=== PATIENT | female | born 1980 | race Caucasian/White ===

== ENCOUNTER 2022-09-21 09:54 | Outpatient (REF) | payer MEDICARE, MEDICAID, SELFPAY ==
[2022-09-21 11:39] LABS: MANUAL DIFF FLAG NO
[2022-09-21 11:47] LABS: Appearance Urine Clear; Color Urine Yellow; Glucose Urine UA Negative (Negative); Leukocyte Esterase Urine Negative (Negative); Nitrite Urine Negative (Negative); UMIC TRIGGER UA YES; Urine Blood Small (1+) (Negative); Urine Ketones Trace mg/dL (Negative); Urine Protein Negative (Neg-Trace)
[2022-09-21 11:52] LABS: Bacteria Urine 1+ (None Seen); Hyaline Casts Urine 0-2 /LPF (0-2); WBC Urine 0-5 /HPF (0-5)
[2022-09-21 12:00] LABS: Basophils Percent Auto 0.5 % (0-2); Eosinophils Absolute Auto 0.2 X10*3/uL (0.0-0.4); Eosinophils Percent Auto 2.2 % (0-4); Hematocrit 44.2 % (37.0-47.0); Hemoglobin 14.4 g/dl (12.0-16.0); Imm Gran Abs Auto 0.02 X10*3/uL (0.00-0.03); Imm Gran Pct Auto 0.2 % (0.0-0.4); Lymphocytes Absolute Auto 2.9 X10*3/uL (1.2-4.9); Lymphocytes Percent Auto 33.1 % (20-40); Mean Corpuscular HGB Conc 32.6 g/dl (31.0-35.0); Mean Corpuscular Hemoglobin 27.4 pg (27.0-33.0); Mean Corpuscular Volume 84.2 fL (80.0-98.0); Mean Platelet Volume 9.5 fL (9.4-12.3); Monocytes Absolute Auto 0.6 X10*3/uL (0.1-1.2); Monocytes Percent Auto 6.8 % (2-11); Neutrophils Percent Auto 57.2 % (45-73); Platelet Count 388 X10*3/uL (160-400); Red Blood Count 5.25 X10*6/uL (4.20-5.50); Red Cell Distribution Width 13.4 % (11.0-16.0); White Blood Count 8.7 X10*3/uL (4.8-10.8)
[2022-09-21 15:22] LABS: Alanine Aminotransferase 19 U/L (0-31); Albumin Level 4.4 g/dL (3.5-5.0); Alkaline Phosphatase 53 U/L (39-117); Anion Gap 14 (12-20); Aspartate Amino Transferase 15 U/L (5-31); Bilirubin Total 0.6 mg/dL (0.0-1.0); Blood Urea Nitrogen 12 mg/dL (9-16); Calcium 8.8 mg/dL (8.4-10.2); Carbon Dioxide 25 mmol/L (22-29); Chloride 104 mmol/L (96-108); Cholesterol 267 mg/dL; Estimated Glomerular Filt Rate > 60; Glucose Fasting 83 mg/dL (60-99); HDL Cholesterol 58 mg/dL; LDL Cholesterol Calculated 184 mg/dl; Potassium 4.6 mmol/L (3.3-5.1); Sodium 138 mmol/L (135-145); Total Protein 6.8 g/dL (6.5-8.0); Triglycerides 127 mg/dL
== END 2022-09-21 09:55 | disposition home or self-care (01) ==
LOC: HO.HMGCLDS 09:54
PROVIDERS: PCP Internal Medicine; Visit Provider Internal Medicine
DX: Z00.00 Encounter for general adult medical examination without abnormal findings (principal); E78.5 Hyperlipidemia, unspecified
CPT/HCPCS: 36415; 80053; 80061; 81001; 85025

== ENCOUNTER 2023-03-09 12:29 | Outpatient (AMB) | payer MEDICARE, MEDICAID, SELFPAY ==
--- NOTE | 2023-03-09 12:33 | MHC.PC.OV ---
Vital Signs 03/09/23 12:35 Height 5 ft 5.5 in Weight 160 lb BMI 26.2 BP 98/66 Blood Pressure Location Lt brachial Position Sitting Pulse 75 Pulse Source Pulse Oximeter Pulse Oximetry (%) 98 Oxygen Delivery Method Room Air Intake Visit Reasons: 3 Month follow up Intake Note: Pt is here today for 3 months follow up visit. Allergies No Known Allergies Allergy (Verified 03/09/23 12:36) Medication List - Last Reconciled 03/09/23 by Micheline Gomez MD baclofen 10 mg PO BEDTIME levonorgestrel (Mirena) intrauterine omeprazole 40 mg (2 x 20 mg) PO DAILY pravastatin 40 mg PO DAILY Tobacco use date assessed: 03/09/23 Dental Screening Dental Screen Date: 03/09/23 Did you have a dental visit in the last 12 months?: Yes Did you have a dental problem in the last 6 months where you did not have access to dental care?: No Was dental information given to patient?: Patient has dentist HPI 3 Month follow up HPI Details Pt presents for f/u of hyperlipid. Pt has been taking Pravastatin. Pt has been taking Baclofen prn for TMJ and feels slightly better. Patient follows up with a counselor for chronic anxiety and depression. She used to take different medications for the depression but developed side effects to multiple medications. Patient is reconsidering seeing a psychiatrist and trying medication. [facility] Medical History Agoraphobia Annual physical exam GERD (gastroesophageal reflux disease) Hyperlipidemia Surgical History Hx of appendectomy Family History Father Hypertension Diabetes Substance use disorder Mother Mental health disorder Social History Housing: Unknown / Unable to assess Alcohol intake: never Patient Tobacco Use Status: Never used Tobacco Current occupational status: unemployed Cognitive needs: No Hearing needs: No Vision needs: Yes Review of Systems Const All systems reviewed & are unremarkable except as noted in HPI and below Reports no additional complaints Eyes Reports no additional complaints ENT Reports no additional complaints Resp Reports no additional complaints GI Reports no additional complaints Reports no additional complaints Neuro Reports no additional complaints Physical exam (Primary Care) Vital Signs: Last Vital Signs Pulse 75 03/09/23 12:35 BP 98/66 03/09/23 12:35 Pulse Ox 98 03/09/23 12:35 Oxygen Delivery Method Room Air 03/09/23 12:35 BMI result Body Mass Index 26.2 Tobacco/Smoking Status: Tobacco use Status Tobacco use date assessed 03/09/23 03/09/23 12:39 Patient Tobacco Use Status Never used Tobacco 03/09/23 12:34 Const General: no acute distress HENMT Ears: hearing grossly normal bilaterally Mouth: Normal oral and palatal mucosa present Throat: Yes posterior oropharynx normal Eyes General: appearance normal, both eyes and all related structures Neck Neck: Yes supple Resp Effort & Inspection: normal respiratory effort Auscultation: clear to auscultation bilaterally Cardio Rhythm: regular rhythm Heart sounds: S1 normal heart sound present and S2 normal heart sound present GI Inspection: Yes normal to inspection Palpation (GI): Soft to palpation Auscultation: normal bowel sounds Assessment and Plan Assessment & Plan (1) Hyperlipidemia: Code(s): E78.5 - Hyperlipidemia, unspecified Plan: Continue pravastatin patient will return for fasting blood work and will follow-up in 6 months with blood work before (2) Annual physical exam: Code(s): Z00.00 - Encounter for general adult medical examination without abnormal findings (3) TMJ (temporomandibular joint disorder): Code(s): M26.609 - Unspecified temporomandibular joint disorder, unspecified side Plan: Continue baclofen p.r.n. (4) Anxiety and depression: Code(s): F41.9 - Anxiety disorder, unspecified; F32.A - Depression, unspecified Plan: Continue counseling and psychiatric care Orders: Orders Comprehensive [place]. Panel Fast 6 Months E78.5 - Hyperlipidemia, unspecified, R09.82 - Postnasal drip, Z00.00 - Encounter for general adult medical examination without abnormal findings Lipid Panel 6 Months E78.5 - Hyperlipidemia, unspecified, R09.82 - Postnasal drip, Z00.00 - Encounter for general adult medical examination without abnormal findings Complete Blood Count Auto Diff 6 Months E78.5 - Hyperlipidemia, unspecified, R09.82 - Postnasal drip, Z00.00 - Encounter for general adult medical examination without abnormal findings TSH reflex Free T4 6 Months E78.5 - Hyperlipidemia, unspecified, R09.82 - Postnasal drip, Z00.00 - Encounter for general adult medical examination without abnormal findings Coding Level of Care Code Est Pt Level 4 (63282) Diagnoses Hyperlipidemia E78.5 Annual physical exam Z00.00 TMJ (temporomandibular joint disorder) M26.609 Anxiety and depression F41.9; F32.A
[2023-03-09 12:35] VITALS: BP 98/66; PULSE 75; O2SAT 98; BMI 26.2
== END 2023-03-09 13:24 | disposition home or self-care (01) ==
PROVIDERS: PCP Internal Medicine; Visit Provider Internal Medicine
DX: E78.5 Hyperlipidemia, unspecified (principal); Z00.00 Encounter for general adult medical examination without abnormal findings; M26.609 Unspecified temporomandibular joint disorder, unspecified side; F41.9 Anxiety disorder, unspecified; F32.A Depression, unspecified
CPT/HCPCS: 99214

== ENCOUNTER 2023-03-20 07:11 | Outpatient (REF) | payer MEDICARE, MEDICAID, SELFPAY ==
[2023-03-20 12:40] LABS: Alanine Aminotransferase 28 U/L (0-31); Albumin Level 4.4 g/dL (3.5-5.0); Alkaline Phosphatase 63 U/L (39-117); Anion Gap 12 (12-20); Aspartate Amino Transferase 19 U/L (5-31); Bilirubin Total 0.3 mg/dL (0.0-1.0); Blood Urea Nitrogen 14 mg/dL (9-16); Calcium 9.4 mg/dL (8.4-10.2); Carbon Dioxide 25 mmol/L (22-29); Chloride 106 mmol/L (96-108); Cholesterol 204 mg/dL (<200); Estimated Glomerular Filt Rate > 60; Glucose Fasting 87 mg/dL (60-99); HDL Cholesterol 76 mg/dL (>40); LDL Cholesterol Calculated 114 mg/dL (<100); Sodium 139 mmol/L (135-145); Triglycerides 71 mg/dL (<150)
== END 2023-03-20 07:12 | disposition home or self-care (01) ==
LOC: HO.HMGCLDS 07:11
PROVIDERS: PCP Internal Medicine; Visit Provider Internal Medicine
DX: E78.5 Hyperlipidemia, unspecified (principal)
CPT/HCPCS: 36415; 80053; 80061

== ENCOUNTER 2024-01-14 13:21 | Outpatient (AMB) | payer MEDICARE, MEDICAID, SELFPAY ==
--- NOTE | 2024-01-14 13:35 | AM.OFFVISMDC ---
Intake Vital Signs 01/14/24 13:36 Height 5 ft 5.5 in Weight 160 lb BMI 26.2 BP 102/68 Blood Pressure Location Lt brachial Position Sitting Pulse 74 Pulse Source Pulse Oximeter Pulse Oximetry (%) 96 Oxygen Delivery Method Room Air Intake Visit Reasons: AWV Allergies No Known Allergies Allergy (Verified 01/14/24 13:36) Medication List - Last Reconciled 01/14/24 by Micheline Gomez MD baclofen 10 mg PO BEDTIME levonorgestrel (Mirena) intrauterine omeprazole 40 mg PO DAILY pravastatin 40 mg PO DAILY HPI AWV HPI Details Initiated the conversation about Advanced Directives. Advanced Directives help? patients prepare for current and future decisions about their medical treatment? and place of care. Discussed with patient that it is a process where a patients? current condition and prognosis are reviewed, their wishes for information? regarding their illness are elicited, and likely medical dilemmas are presented? and options discussed. The form can be amended as needed, reviewed yearly and? make changes as needed IPPE/AWV ? year old presents? for her ? Annual? Wellness Visit, initial visit.? Medical / Social History Reviewed? Past Medical History ?Yes? . ? [place]? of Care / Care Team list updated ?Yes . ? Surgical/Hospitalization? History ?Yes . ? Current Medications? (including OTC and supplements) ?Yes . ? Family History ?Yes? . ? Tobacco? Control form ?Yes . ? AUDIT-C (Alcohol use) form? ?Yes . ? Illicit drug use in Social? History ?Yes . ? Current diagnosis of? depression? ?No ? Appropriate PHQ2/PHQ9? completed ?Yes . ? Data entered by ?Medical? Casting Room Operator and reviewed by provider ? Fall Risk ? Fall? History? Have you had any falls with? injury in the past year? ?No . ? Have you had two or more? falls in the past year? ?No . ? Fall Risk Assessment: ?No? falls in the past year . ? HRA filled out by? the patient, reviewed by Provider and scanned. ? IPPE/AWV ? Balance? [place]? ?Yes . ? Tandem? walk ?Yes . ? Walk and? Turn ?Yes . ? Rise from? sit to stand ?Yes . ?Vision? Corrective? lens ?Yes ? Vision? screen ? Up-to-date, has an appointment [] for vision? screening and glaucoma screening ?Hearing? Whisper? test ?pass .? Initiated the conversation about Advanced Directives. Advanced Directives help? patients prepare for current and future decisions about their medical treatment? and place of care. Discussed with patient that it is a process where a patients? current condition and prognosis are reviewed, their wishes for information? regarding their illness are elicited, and likely medical dilemmas are presented? and options discussed. The form can be amended as needed, reviewed yearly and? make changes as needed Written? Plan?Completed. See Patient? Documents. [facility] Medical History Agoraphobia Annual physical exam GERD (gastroesophageal reflux disease) Hyperlipidemia Surgical History Hx of appendectomy Family History Father Hypertension Diabetes Substance use disorder Mother Mental health disorder Social History Housing: Unknown / Unable to assess Alcohol intake: never Patient Tobacco Use Status: Never used Tobacco Current occupational status: unemployed Cognitive needs: No Hearing needs: No Vision needs: Yes Questionnaire Medicare Wellness Checkup What gender do you identify with?: female During the past 4 weeks, how much have you been bothered by emotional problems such as feeling anxious, depressed, irritable, sad or downhearted, and blue?: extremely During the past 4 weeks, has your physical & emotional health limited your social activities with family, friends, neighbors, or groups?: extremely During the past 4 weeks, how much bodily pain have you generally had?: moderate pain During the past 4 weeks, was someone available to help you if you needed & wanted help?: yes, as much as I wanted During the past 4 weeks, what was the hardest physical activity you could do for at least 2 minutes?: light Can you get to places out of walking distance without help? (For eg., can you travel alone on buses, taxis or drive your car?): Yes Can you go shopping for groceries or clothes without someone's help?: Yes Can you prepare your own meals?: Yes Can you do your housework without help?: Yes Because of any health problems, do you need the help of another person with your personal care needs such as eating, bathing, dressing or getting around the house?: No Can you handle your own money without help?: Yes During the past 4 weeks, how would you rate your health in general?: fair During the past 4 weeks how have things been going for you?: pretty bad Are you having difficulties driving your car?: no Do you always fasten your seat belt when you are in a car?: yes, usually During past 4 weeks, have you been bothered by the following: never: Problems using the telephone?, seldom: Falling or dizzy when standing up, often: Sexual problems? and Trouble eating well? and always: Teeth or denture problems? and Tiredness or fatigue? Have you fallen 2 or more times in the past year?: No Are you afraid of falling?: No Are you a smoker?: yes, and I might quit During the past 4 weeks, how many drinks of wine, beer, or other alcoholic beverages did you have?: 2-5 drinks per week Do you exercise for about 20 minutes 3 or more times a week?: no, I usually do not exercise this much Have you been given information to help with the following?: no: Hazards in your house that might hurt you? and no: Keeping track of your medications? How often do you have trouble taking medicines the way you have been told to take them?: I always take medicine as prescribed How confident are you that you can control & manage most of your health problems?: very confident What is your race?: White Mini Mental State Exam (MMSE) Orientation What is the (year) (season) (date) (day) (month)?: year, season, date, day and month Where are we (state) (county) (town or city) (hospital) (floor)?: state, county, town or city, hospital/clinic and floor Registration Name of 3 unrelated objects clearly and slowly, then ask patient to repeat all 3 of them. (1st repeat determines score. Make sure they can repeat all three): object 1, object 2 and object 3 Attention & Calculation (CHOOSE ONE) Spell WORLD backwards (DLROW): 5 letters Recall Ask patient to repeat the 3 items from question #3.: object 1, object 2 and object 3 Language Show patient a wristwatch & ask what it is. Repeat for pencil.: watch and pencil Ask the patient to repeat the phrase 'No ifs, ands, or buts' after you.: correct Ask the patient to 'take a piece of paper with their right hand' 'fold paper in half' 'place paper on floor': take paper in right hand, fold paper in half and place paper on floor Print the sentence 'CLOSE YOUR EYES' on a piece. If patient actually closes eyes then score.: followed written direction Give patient a blank piece of paper & ask to write a sentence. Score if it contains a noun & verb.: sentence contains subject and verb Score Score: 29 Activity of Daily Living Bathing - sponge bath, tub bath or shower: receives no assistance (gets in/out by self, if usual bathing means Dressing - getting clothes from closets & drawers, including inner/outer garments & fasteners.: gets clothes & gets completely dressed without help Toileting - going to the 'toilet room' for urine/bowel elimination & cleaning self/arranging clothes: goes to toilet room, cleans self, arranges clothes without help Transfer: moves in & out of bed and chair without help (may use support object) Continence: controls urination/bowel movements completely by self Feeding: feeds self without help Total Score: 0 Information obtained from: patient Using telephone: independent Traveling: independent Shopping: independent Preparing meals: independent Housework: independent Taking medicine: independent Managing money: independent PHQ-9 Over the last 2 weeks, how often have you been bothered by any of the following problems? 1. Little interest or pleasure in doing things: nearly every day 2. Feeling down, depressed, or hopeless: nearly every day 3. Trouble falling or staying asleep, or sleeping too much: nearly every day 4. Feeling tired or having little energy: nearly every day 5. Poor appetite or overeating: not at all 6. Feeling bad about yourself - or that you are a failure or have let yourself or your family down: nearly every day 7. Trouble concentrating on things, such as reading the newspaper or watching television: nearly every day 8. Moving or speaking so slowly that other people could have noticed. Or the opposite - being so fidgety or restless that you have been moving around a lot more than usual: not at all 9. Thoughts that you would be better off or of hurting yourself in some way: several days Total score: 19 Depression Screening Interpretation: Positive Depression Screening Done: Yes Source: Developed by Drs. Jered Hannah, Melodie Shine, Fahad Willett and colleagues, with an educational corin from [employer] Review of Systems Const All systems reviewed & are unremarkable except as noted in HPI and below Eyes Reports no additional complaints ENT Reports no additional complaints Card Reports no additional complaints Resp Reports no additional complaints GI Reports no additional complaints Reports no additional complaints Physical Exam Vital Signs: Last Vital Signs Pulse 74 01/14/24 13:36 BP 102/68 01/14/24 13:36 Pulse Ox 96 01/14/24 13:36 Oxygen Delivery Method Room Air 01/14/24 13:36 BMI result Body Mass Index 26.2 Const General: no acute distress HEENT Head: Yes normal to inspection Ears: hearing grossly normal bilaterally Neck Neck: Yes normal visual inspection and Yes supple Resp Effort & Inspection: normal respiratory effort Auscultation: clear to auscultation bilaterally Cardio Rhythm: regular rhythm Heart sounds: S1 normal heart sound present and S2 normal heart sound present GI Inspection: Yes normal to inspection Palpation (GI): Soft to palpation Percussion: Yes normal to percussion Auscultation: normal bowel sounds Assessment & Plan Assessment & Plan (1) Hyperlipidemia: Code(s): E78.5 - Hyperlipidemia, unspecified Plan: Continue statin (2) Annual physical exam: Code(s): Z00.00 - Encounter for general adult medical examination without abnormal findings Plan: Well-balanced diet regular physical activity discussed with the patient. She will return for fasting blood work. Patient is up-to-date with the Pap smear and breast exam by applications analyst (3) Anxiety and depression: Comment: Agoraphobia, f/u psychology Code(s): F41.9 - Anxiety disorder, unspecified; F32.A - Depression, unspecified Plan: Follow-up with psychologist Orders: Orders TSH reflex Free T4 Today E78.5 - Hyperlipidemia, unspecified, F32.A - Depression, unspecified, F41.9 - Anxiety disorder, unspecified, Z00.00 - Encounter for general adult medical examination without abnormal findings Lipid Panel Today E78.5 - Hyperlipidemia, unspecified, F32.A - Depression, unspecified, F41.9 - Anxiety disorder, unspecified, Z00.00 - Encounter for general adult medical examination without abnormal findings Comprehensive [place]. Panel Fast Today E78.5 - Hyperlipidemia, unspecified, F32.A - Depression, unspecified, F41.9 - Anxiety disorder, unspecified, Z00.00 - Encounter for general adult medical examination without abnormal findings Complete Blood Count Auto Diff Today E78.5 - Hyperlipidemia, unspecified, F32.A - Depression, unspecified, F41.9 - Anxiety disorder, unspecified, Z00.00 - Encounter for general adult medical examination without abnormal findings Quality Reporting (2019) Depression/Bipolar (159/160/161/177) PHQ-9: Total score: 19 Coding Level of Care Code Medicare Subsequent (G0439) Diagnoses Hyperlipidemia E78.5 Annual physical exam Z00.00 Anxiety and depression F41.9; F32.A CPT Codes Advance Care Planning - Time spent: 1-15 minutes, not on file ([id number]) Advance Care Planning Advance Care Planning discussion: Exists, not on file Forms completed: Health Care Proxy Time spent: 1-15 minutes, not on file
[2024-01-14 13:36] VITALS: BP 102/68; PULSE 74; O2SAT 96; BMI 26.2
== END 2024-01-14 14:22 | disposition home or self-care (01) ==
PROVIDERS: PCP Internal Medicine; Visit Provider Internal Medicine
DX: Z00.00 Encounter for general adult medical examination without abnormal findings (principal); E78.5 Hyperlipidemia, unspecified; F41.9 Anxiety disorder, unspecified; F32.A Depression, unspecified
CPT/HCPCS: 1124F; G0439

== ENCOUNTER 2024-02-15 09:41 | Outpatient (AMB) | payer MEDICARE, MEDICAID, SELFPAY ==
--- NOTE | 2024-02-15 09:52 | A.OFFPC_ITS ---
Vital Signs 02/15/24 10:02 Height 5 ft 5.5 in Weight 160 lb BMI 26.2 BP 102/66 Blood Pressure Location Rt brachial Position Sitting Pulse 72 Pulse Source Pulse Oximeter Pulse Oximetry (%) 99 Oxygen Delivery Method Room Air Intake Visit Reasons: Followup jaw and neck pain Intake Note: Pt is here today for a follow up visit on jaw and neck pain. Allergies No Known Allergies Allergy (Verified 02/15/24 10:09) Medication List - Last Reconciled 02/15/24 by Micheline Gomez MD baclofen 10 mg PO BEDTIME levonorgestrel (Mirena) intrauterine omeprazole 40 mg PO DAILY pravastatin 40 mg PO DAILY Tobacco use date assessed: 02/15/24 Dental Screening Dental Screen Date: 02/15/24 Did you have a dental visit in the last 12 months?: Yes Did you have a dental problem in the last 6 months where you did not have access to dental care?: No Was dental information given to patient?: Patient has dentist HPI Followup jaw and neck pain HPI Details Pt presents for f/u for TMJ and chronic clenching teeth, f/u with dentist and has been getting physical therapy. She has been taking baclofen at bedtime with good relief. Hyperlipidemia is controlled on pravastatin. Patient is established with a therapist for chronic anxiety [facility] Medical History Annual physical exam Hyperlipidemia GERD (gastroesophageal reflux disease) Agoraphobia Surgical History Hx of appendectomy Family History Father Hypertension Diabetes Substance use disorder Mother Mental health disorder Social History Housing: Unknown / Unable to assess Alcohol intake: never Patient Tobacco Use Status: Never used Tobacco service: No Current occupational status: unemployed Cognitive needs: No Hearing needs: No Vision needs: Yes Questionnaire PHQ-9 Over the last 2 weeks, how often have you been bothered by any of the following problems? 1. Little interest or pleasure in doing things: nearly every day 2. Feeling down, depressed, or hopeless: nearly every day 3. Trouble falling or staying asleep, or sleeping too much: nearly every day 4. Feeling tired or having little energy: nearly every day 5. Poor appetite or overeating: nearly every day 6. Feeling bad about yourself - or that you are a failure or have let yourself or your family down: nearly every day 7. Trouble concentrating on things, such as reading the newspaper or watching television: nearly every day 8. Moving or speaking so slowly that other people could have noticed. Or the opposite - being so fidgety or restless that you have been moving around a lot more than usual: not at all 9. Thoughts that you would be better off or of hurting yourself in some way: several days Total score: 22 Source: Developed by Drs. Jered Hannah, Melodie Shine, Fahad Willett and colleagues, with an educational corin from [employer]. Thrive Questionnaire Date Thrive assessed: 02/10/24 I am a: Patient What is your living situation today?: I have a steady place to live Within the past 12 months, did the food you bought not last and you didn't have the money to get more?: I choose not to answer this question Within the past 12 months, did you worry whether your food would run out before you got money to buy more?: Never true Do you have trouble paying for medicines?: No Do you have trouble getting transportation to medical appointments?: No Do you have trouble paying your heating and electricity bill?: No Do you have trouble taking care of your child, family member or friend?: No Do you have trouble with day-to-day activities such as bathing, preparing meals, shopping, managing finances, etc.?: I choose not to answer this question Are you currently unemployed and looking for a job?: No Are you interested in more education?: Yes Please select the resources that you would like help with: Housing/Snf Currently or been in a relationship where the following occur: I choose not to answer THRIVE Score: 0 AUDIT C Alcohol Use Questionnaire (AUDIT-C) 1. How often do you have a drink containing alcohol?: Monthly or less 2. How many drinks containing alcohol do you have on a typical day when you are drinking?: 1 or 2 3. How often do you have six or more drinks on one occasion?: Never Total Score: 1 JJ-7 AMB Questionnaire JJ-7 Feeling nervous, anxious, or on edge: 3 = Nearly every day Not being able to stop or control worryin = Nearly every day Worrying too much about different things: 3 = Nearly every day Trouble relaxin = Nearly every day Being so restless that it is hard to sit still: 0 = Not at all Becoming easily annoyed or irritable: 1 = Several days Feeling afraid as if something awful might happen: 3 = Nearly every day Total JJ-7 score (0-4 normal; 5-9 mild; 10-14 moderate; 15-21 severe): 16 Source: Developed by Drs. Jered Hannah, Melodie Shine, Fahad Willett and colleagues, with an educational corin from [employer]. Review of Systems Const All systems reviewed & are unremarkable except as noted in HPI and below Eyes Reports no additional complaints ENT Reports no additional complaints Card Reports no additional complaints Resp Reports no additional complaints GI Reports no additional complaints Physical exam (Primary Care) Vital Signs: Last Vital Signs Pulse 72 02/15/24 10:02 BP 102/66 02/15/24 10:02 Pulse Ox 99 02/15/24 10:02 Oxygen Delivery Method Room Air 02/15/24 10:02 BMI result Body Mass Index 26.2 Tobacco/Smoking Status: Tobacco use Status Tobacco use date assessed 02/15/24 02/15/24 10:11 Patient Tobacco Use Status Never used Tobacco 02/15/24 10:11 PHQ-9: PHQ-9 Score PHQ-9: Total score 22 02/15/24 10:50 Thrive Assessment: Date of Thrive Assessment Date Thrive assessed 02/10/24 02/15/24 09:52 Currently or been in a relationship where the following occur: I choose not to answer Assessment and Plan Assessment & Plan (1) Anxiety and depression: Comment: Agoraphobia, f/u psychology Code(s): F41.9 - Anxiety disorder, unspecified; F32.A - Depression, unspecified (2) TMJ (temporomandibular joint disorder): Comment: On baclofen p.r.n. and PT Code(s): M26.609 - Unspecified temporomandibular joint disorder, unspecified side Plan: CONTINUE BACLOFEN NEEDED (3) Hyperlipidemia: Code(s): E78.5 - Hyperlipidemia, unspecified Plan: Continue pravastatin Orders: Orders Complete Blood Count Auto Diff 1 Year E78.5 - Hyperlipidemia, unspecified, Z00.00 - Encounter for general adult medical examination without abnormal findings Comprehensive [place]. Panel Fast 1 Year E78.5 - Hyperlipidemia, unspecified, Z00.00 - Encounter for general adult medical examination without abnormal findings Lipid Panel 1 Year E78.5 - Hyperlipidemia, unspecified, Z00.00 - Encounter for general adult medical examination without abnormal findings Medications: Refilled baclofen 10 mg PO BEDTIME 90 tabs 3RF Coding Level of Care Code Est Pt Level 3 (45281) Diagnoses Anxiety and depression F41.9; F32.A TMJ (temporomandibular joint disorder) M26.609 Hyperlipidemia E78.5
[2024-02-15 10:02] VITALS: BP 102/66; PULSE 72; O2SAT 99; BMI 26.2
== END 2024-02-15 11:40 | disposition home or self-care (01) ==
PROVIDERS: PCP Internal Medicine; Visit Provider Internal Medicine
DX: F41.9 Anxiety disorder, unspecified (principal); F32.A Depression, unspecified; M26.609 Unspecified temporomandibular joint disorder, unspecified side; E78.5 Hyperlipidemia, unspecified
CPT/HCPCS: 99213

== ENCOUNTER 2024-12-06 06:35 | Outpatient (REF) | payer MEDICARE, MEDICAID, SELFPAY ==
[2024-12-06 11:05] LABS: MANUAL DIFF FLAG NO
[2024-12-06 11:12] LABS: Basophils Percent Auto 0.5 % (0-2); Eosinophils Absolute Auto 0.2 X10*3/uL (0.0-0.4); Eosinophils Percent Auto 2.1 % (0-4); Hematocrit 43.1 % (37.0-47.0); Hemoglobin 14.2 g/dl (12.0-16.0); Imm Gran Abs Auto 0.02 X10*3/uL (0.00-0.03); Imm Gran Pct Auto 0.3 % (0.0-0.4); Lymphocytes Absolute Auto 1.9 X10*3/uL (1.2-4.9); Lymphocytes Percent Auto 24.9 % (20-40); Mean Corpuscular HGB Conc 32.9 g/dl (31.0-35.0); Mean Corpuscular Hemoglobin 27.8 pg (27.0-33.0); Mean Corpuscular Volume 84.3 fL (80.0-98.0); Mean Platelet Volume 9.5 fL (9.4-12.3); Monocytes Absolute Auto 0.6 X10*3/uL (0.1-1.2); Monocytes Percent Auto 7.6 % (2-11); Neutrophils Percent Auto 64.6 % (45-73); Platelet Count 384 X10*3/uL (160-400); Red Blood Count 5.11 X10*6/uL (4.20-5.50); Red Cell Distribution Width 13.6 % (11.0-16.0); White Blood Count 7.7 X10*3/uL (4.8-10.8)
[2024-12-06 11:27] LABS: Alanine Aminotransferase 26 U/L (0-31); Albumin Level 4.5 g/dL (3.5-5.0); Alkaline Phosphatase 57 U/L (39-117); Anion Gap 12 (12-20); Aspartate Amino Transferase 21 U/L (5-31); Bilirubin Total 0.5 mg/dL (0.0-1.0); Blood Urea Nitrogen 10 mg/dL (9-16); Calcium 9.3 mg/dL (8.4-10.2); Carbon Dioxide 24 mmol/L (22-29); Chloride 106 mmol/L (96-108); Cholesterol 170 mg/dL (<200); Estimated Glomerular Filt Rate > 60; Glucose Fasting 89 mg/dL (60-99); HDL Cholesterol 63 mg/dL (>40); LDL Cholesterol Calculated 89 mg/dL (<100); Potassium 3.9 mmol/L (3.3-5.1); Sodium 138 mmol/L (135-145); Total Protein 6.9 g/dL (6.5-8.0); Triglycerides 94 mg/dL (<150)
== END 2024-12-06 06:36 | disposition home or self-care (01) ==
LOC: HO.HMGCLDS 06:35
PROVIDERS: PCP Internal Medicine; Visit Provider Internal Medicine
DX: Z00.00 Encounter for general adult medical examination without abnormal findings (principal); E78.5 Hyperlipidemia, unspecified; F41.9 Anxiety disorder, unspecified; F32.A Depression, unspecified
CPT/HCPCS: 36415; 80053; 80061; 84443; 85025

== ENCOUNTER 2024-12-31 07:19 | Outpatient (AMB) | payer MEDICARE, MEDICAID, SELFPAY ==
--- NOTE | 2024-12-31 07:27 | MHC.PC.OV ---
Intake Visit Reasons: severe mouth pain/ muscle relaxer. Allergies No Known Allergies Allergy (Verified 12/31/24 07:38) Medication List - Last Reconciled 12/31/24 by WILDER Chung levonorgestrel (Mirena) intrauterine methocarbamol 500 mg PO BEDTIME omeprazole 40 mg PO DAILY pravastatin 40 mg PO DAILY Tobacco use date assessed: 02/15/24 Dental Screening Dental Screen Date: 02/15/24 HPI severe mouth pain/ muscle relaxer. HPI Details reports ongoing TMJ for years, with heavy clinching especially at night. She reports being on baclofen for years, i think i'm developing a tolerance . She reports most orthodontic specialists dont take her insurance, or she is to old. She also reports there is a provider in [place], but that is too far, means ar difficult to get there. She reports her insurance does not cover PT for this issue. Pt is in tears. She reports further using mouth guards she purchases online. [facility] Medical History Annual physical exam Hyperlipidemia GERD (gastroesophageal reflux disease) Agoraphobia Surgical History Hx of appendectomy Family History Father Hypertension Diabetes Substance use disorder Mother Mental health disorder Social History Housing: Unknown / Unable to assess Alcohol intake: never Patient Tobacco Use Status: Never used Tobacco service: No Current occupational status: unemployed Cognitive needs: No Hearing needs: No Vision needs: Yes Questionnaire Thrive Questionnaire Date Thrive assessed: 02/10/24 Physical exam (Primary Care) Tobacco/Smoking Status: Tobacco use Status Tobacco use date assessed 02/15/24 02/15/24 10:11 Patient Tobacco Use Status Never used Tobacco 02/15/24 10:11 Thrive Assessment: Date of Thrive Assessment Date Thrive assessed 02/10/24 02/15/24 09:52 Telehealth Telehealth Telehealth Platform: [facility] Location of provider rendering services: practice address Location of patient: address on file Patient Identification confirmed using: Name, : Yes Telehealth method: video Patient verbally consented to treatment: Yes Patient verbally consented to billing insurance company: Yes Patient informed of any privacy concerns related to visit: Yes Minutes spent on Phone/Video with Pt.: 12 Coding Level of Care Code Tele Est Pt Level 3 (20048) Diagnoses TMJ (temporomandibular joint disorder) M26.609 Assessment & Plan Assessment & Plan (1) TMJ (temporomandibular joint disorder): Code(s): M26.609 - Unspecified temporomandibular joint disorder, unspecified side Category: Medical Plan switch muscle relaxors for some time. TMJ XRs ordered, pt denies any si or hi. She was appreciative for today's visit. reinforced continued use of mouth guards Orders: Orders XR TMJ BI Today M26.609 - Unspecified temporomandibular joint disorder, unspecified side Medications: New methocarbamol 500 mg PO BEDTIME 30 tabs 2RF Discontinued baclofen Discontinued Reason: Doctor's Order 10 mg PO BEDTIME 90 tabs 3RF
== END 2024-12-31 08:02 | disposition home or self-care (01) ==
LOC: HO.HMCC 07:19
PROVIDERS: PCP Internal Medicine; Visit Provider Nurse Practitioner Family
DX: M26.603 Bilateral temporomandibular joint disorder, unspecified (principal)

== ENCOUNTER → 2024-12-31 07:19 | Outpatient (BNVA) | payer MEDICARE, MEDICAID, SELFPAY | PROVIDERS: PCP Internal Medicine; Visit Provider Nurse Practitioner Family | DX: M26.609 Unspecified temporomandibular joint disorder, unspecified side (principal) ==

== ENCOUNTER 2025-01-01 08:21 | Outpatient (REF) | payer MEDICARE, MEDICAID, SELFPAY ==
--- NOTE | ~2025-01-01 | XR_ITS ---
EXAMINATION: XR TEMPOROMANDIBULAR JOINT, BILATERAL CLINICAL INFORMATION: M26.609 - Unspecified temporomandibular joint disorder, unspecified side COMPARISON: None available. TECHNIQUE: 2 views of the left temporomandibular joint and 2 views of the right temporomandibular joint were obtained. Diffuse thickening and closed and open-mouth positions. FINDINGS: Left TMJ: Mandibular condyle has normal morphology. There is normal positioning within the glenoid on the closed mouth position. There is normal anterior translation in the open mouth position. No bone lesions or fractures. Right TMJ: Mandibular condyle demonstrates mild subchondral sclerosis and minimal anterior spurring consistent with degenerative change. There is normal positioning within the glenoid on the closed mouth position. Is normal anterior translation in the open mouth position. No bone lesions or fractures. XR/XR TMJ BI IMPRESSION: 1. 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 2. Normal anterior translation of both condyles in the open-mouth position. 3. If further investigation is deemed warranted, MRI of the TM joints could be considered. Electronically signed by: Jj Bullock MD 01/01/2025 08:56 AM EDT
== END 2025-01-01 08:22 | disposition home or self-care (01) ==
LOC: HO.HMGCX 08:21
PROVIDERS: PCP Internal Medicine; Visit Provider Internal Medicine
DX: M26.609 Unspecified temporomandibular joint disorder, unspecified side (principal)
CPT/HCPCS: 70330

== ENCOUNTER → 2025-01-01 08:33 | Outpatient (BNV) | payer MEDICARE, MEDICAID, SELFPAY | PROVIDERS: PCP Internal Medicine; Visit Provider Radiology Diagnostic Radiology | DX: M26.603 Bilateral temporomandibular joint disorder, unspecified (principal) | CPT/HCPCS: 70330 ==

== ENCOUNTER 2025-01-12 12:26 | Outpatient (AMB) | payer MEDICARE, MEDICAID, SELFPAY ==
[2025-01-12 12:27] VITALS: BP 104/76; PULSE 90; RESP 18; TEMP 37; O2SAT 98; BMI 25.1
--- NOTE | 2025-01-12 12:27 | MHC.PC.OV ---
Vital Signs 01/12/25 12:27 Height 5 ft 5.5 in Weight 153 lb BMI 25.1 BP 104/76 Blood Pressure Location Lt brachial Position Sitting Respiration 18 Pulse 90 Pulse Source Pulse Oximeter Temp 98.6 F Temp Source Oral Pulse Oximetry (%) 98 Oxygen Delivery Method Room Air Intake Visit Reasons: TMJ followup Allergies No Known Allergies Allergy (Verified 01/12/25 12:32) Medication List - Last Reconciled 01/12/25 by Micheline Gomez MD levonorgestrel (Mirena) intrauterine methocarbamol 500 mg PO BEDTIME omeprazole 40 mg PO DAILY pravastatin 40 mg PO DAILY Tobacco use date assessed: 01/12/25 Dental Screening Dental Screen Date: 01/12/25 Did you have a dental visit in the last 12 months?: Yes Did you have a dental problem in the last 6 months where you did not have access to dental care?: No Was dental information given to patient?: Patient has dentist HPI TMJ followup HPI Details Pt presents for f/u TMJ disorder. She is waiting for an appointment with [facility] dental [facility]. Patient has been taking methocarbamol instead of baclofen which has been more helpful. Patient is established with a therapist and a psychiatrist for chronic anxiety, depression and agoraphobia but developed side effects from 3 different antidepressants in the past. patient complains of feeling tired when getting up in the AM despite of sleeping for 7 hours and has witnessed apnea episodes. [facility] Medical History (Updated 01/12/25 @ 13:22 by Micheline Gomez MD) TMJ (temporomandibular joint disorder) Annual physical exam Hyperlipidemia GERD (gastroesophageal reflux disease) Agoraphobia Surgical History Hx of appendectomy Family History Father Hypertension Diabetes Substance use disorder Mother Mental health disorder Social History Housing: Unknown / Unable to assess Alcohol intake: never Patient Tobacco Use Status: Never used Tobacco e-Cigarette/Vaping Use: Never Used service: No Current occupational status: unemployed Cognitive needs: No Hearing needs: No Vision needs: Yes Questionnaire PHQ-9 Over the last 2 weeks, how often have you been bothered by any of the following problems? 1. Little interest or pleasure in doing things: nearly every day 2. Feeling down, depressed, or hopeless: nearly every day 3. Trouble falling or staying asleep, or sleeping too much: nearly every day 4. Feeling tired or having little energy: nearly every day 5. Poor appetite or overeating: nearly every day 6. Feeling bad about yourself - or that you are a failure or have let yourself or your family down: nearly every day 7. Trouble concentrating on things, such as reading the newspaper or watching television: nearly every day 8. Moving or speaking so slowly that other people could have noticed. Or the opposite - being so fidgety or restless that you have been moving around a lot more than usual: nearly every day 9. Thoughts that you would be better off or of hurting yourself in some way: nearly every day Total score: 27 Depression Screening Interpretation: Positive Depression Screening Done: Yes 36499 - PHQ-9 Billing: Yes Source: Developed by Drs. Jered Hannah, Melodie Shine, Fahad Willett and colleagues, with an educational corin from [employer]. Thrive Questionnaire Date Thrive assessed: 01/12/25 I am a: Patient What is your living situation today?: I have a steady place to live Within the past 12 months, did the food you bought not last and you didn't have the money to get more?: Never true Within the past 12 months, did you worry whether your food would run out before you got money to buy more?: Sometimes True Do you have trouble paying for medicines?: No Do you have trouble getting transportation to medical appointments?: No Do you have trouble paying your heating and electricity bill?: No Do you have trouble taking care of your child, family member or friend?: No Do you have trouble with day-to-day activities such as bathing, preparing meals, shopping, managing finances, etc.?: No Are you currently unemployed and looking for a job?: No Are you interested in more education?: Yes Please select the resources that you would like help with: None Currently or been in a relationship where the following occur: No concerns reported THRIVE Score: 1 AUDIT C Alcohol Use Questionnaire (AUDIT-C) 1. How often do you have a drink containing alcohol?: Monthly or less 2. How many drinks containing alcohol do you have on a typical day when you are drinking?: 1 or 2 3. How often do you have six or more drinks on one occasion?: Never Total Score: 1 JJ-7 AMB Questionnaire JJ-7 Date JJ - 7 assessed: 01/12/25 Feeling nervous, anxious, or on edge: 3 = Nearly every day Not being able to stop or control worryin = Nearly every day Worrying too much about different things: 3 = Nearly every day Trouble relaxin = Nearly every day Being so restless that it is hard to sit still: 0 = Not at all Becoming easily annoyed or irritable: 1 = Several days Feeling afraid as if something awful might happen: 3 = Nearly every day Total JJ-7 score (0-4 normal; 5-9 mild; 10-14 moderate; 15-21 severe): 16 Source: Developed by Drs. Jered Hannah, Melodie Shine, Fahad Willett and colleagues, with an educational corin from [employer]. JJ-7 Assessment Billing JJ-7 Assessment Tool: JJ-7 Assessment 73442 Review of Systems Const All systems reviewed & are unremarkable except as noted in HPI and below Eyes Reports no additional complaints ENT Reports no additional complaints Card Reports no additional complaints Resp Reports no additional complaints GI Reports no additional complaints Reports no additional complaints Physical exam (Primary Care) Vital Signs: Last Vital Signs Temp 98.6 F 01/12/25 12:27 Pulse 90 01/12/25 12:27 Resp 18 01/12/25 12:27 BP 104/76 01/12/25 12:27 Pulse Ox 98 01/12/25 12:27 Oxygen Delivery Method Room Air 01/12/25 12:27 BMI result Body Mass Index 25.1 Tobacco/Smoking Status: Tobacco use Status Tobacco use date assessed 01/12/25 01/12/25 12:36 Patient Tobacco Use Status Never used Tobacco 01/12/25 12:29 e-Cigarette/Vaping Use Never Used 01/12/25 12:36 PHQ-9: PHQ-9 Score PHQ-9: Total score 27 01/12/25 12:36 Depression Screening Interpretation: Positive Thrive Assessment: Date of Thrive Assessment Date Thrive assessed 01/12/25 01/12/25 12:36 Currently or been in a relationship where the following occur: No concerns reported Const General: no acute distress Eyes General: appearance normal, both eyes and all related structures Neck Neck: Yes no lymphadenopathy and Yes supple Resp Effort & Inspection: normal respiratory effort Auscultation: clear to auscultation bilaterally Cardio Rhythm: regular rhythm Heart sounds: S1 normal heart sound present and S2 normal heart sound present Coding Level of Care Code Est Pt Level 4 (63909) Diagnoses Sleep apnea G47.30 Anxiety and depression F41.9; F32.A TMJ (temporomandibular joint disorder) M26.609 Additional Codes JJ-7 Assessment Billing - JJ-7 Assessment Tool: JJ-7 Assessment 13195 ([id number]) PHQ-9 - 43984 - PHQ-9 Billing: Yes ([id number]) Assessment & Plan Assessment & Plan (1) Sleep apnea: Code(s): G47.30 - Sleep apnea, unspecified Category: Medical Plan: Obtain sleep study to evaluate for sleep (2) Anxiety and depression: Comment: Agoraphobia, f/u psychology Code(s): F41.9 - Anxiety disorder, unspecified; F32.A - Depression, unspecified Category: Medical Plan: Follow-up with a counselor and psychiatrist (3) TMJ (temporomandibular joint disorder): Comment: Patient is awaiting an appointment for [facility]. Code(s): M26.609 - Unspecified temporomandibular joint disorder, unspecified side Category: Medical Plan: Patient was advised to see a TMJ specialist at [facility]. She will continue methocarbamol for now Orders: Orders RT home sleep study Today G47.30 - Sleep apnea, unspecified Medications: Refilled methocarbamol 500 mg PO BEDTIME 30 tabs 2RF
== END 2025-01-12 13:32 | disposition home or self-care (01) ==
LOC: HO.HMCC 12:27
PROVIDERS: PCP Internal Medicine; Visit Provider Internal Medicine
DX: G47.30 Sleep apnea, unspecified (principal); F41.9 Anxiety disorder, unspecified; F32.A Depression, unspecified; M26.609 Unspecified temporomandibular joint disorder, unspecified side

== ENCOUNTER → 2025-01-12 12:26 | Outpatient (BNVA) | payer MEDICARE, MEDICAID, SELFPAY | PROVIDERS: PCP Internal Medicine; Visit Provider Internal Medicine | DX: G47.30 Sleep apnea, unspecified (principal); F41.9 Anxiety disorder, unspecified; F32.A Depression, unspecified; M26.609 Unspecified temporomandibular joint disorder, unspecified side | CPT/HCPCS: 96127; 99212 ==

== ENCOUNTER 2025-02-05 11:53 | Outpatient (AMB) | payer MEDICARE, MEDICAID, SELFPAY ==
[2025-02-05 11:54] VITALS: BP 108/70; PULSE 73; O2SAT 97; BMI 24.1
--- NOTE | 2025-02-05 11:54 | A.OFFPC_ITS ---
Vital Signs 02/05/25 11:54 Height 5 ft 5.5 in Weight 147 lb BMI 24.1 BP 108/70 Blood Pressure Location Lt brachial Position Sitting Pulse 73 Pulse Source Pulse Oximeter Pulse Oximetry (%) 97 Oxygen Delivery Method Room Air Intake Visit Reasons: Annual PE Allergies No Known Allergies Allergy (Verified 02/05/25 12:15) Medication List - Last Reconciled 02/05/25 by Micheline Gomez MD levonorgestrel (Mirena) intrauterine methocarbamol 500 mg PO BEDTIME omeprazole 40 mg PO DAILY pravastatin 40 mg PO DAILY Tobacco use date assessed: 01/12/25 Dental Screening Dental Screen Date: 01/12/25 HPI Annual PE HPI Details Pt presents for PE. PFSH Medical History (Updated 02/05/25 @ 13:27 by Micheline Gomez MD) TMJ (temporomandibular joint disorder) Annual physical exam Hyperlipidemia GERD (gastroesophageal reflux disease) Agoraphobia Surgical History Hx of appendectomy Family History Father Hypertension Diabetes Substance use disorder Mother Mental health disorder Social History Housing: Unknown / Unable to assess Alcohol intake: never Patient Tobacco Use Status: Never used Tobacco e-Cigarette/Vaping Use: Never Used service: No Current occupational status: unemployed Cognitive needs: No Hearing needs: No Vision needs: Yes Questionnaire Thrive Questionnaire Date Thrive assessed: 01/05/25 I am a: Patient What is your living situation today?: I have a steady place to live Within the past 12 months, did the food you bought not last and you didn't have the money to get more?: Never true Within the past 12 months, did you worry whether your food would run out before you got money to buy more?: Sometimes True Do you have trouble paying for medicines?: No Do you have trouble getting transportation to medical appointments?: No Do you have trouble paying your heating and electricity bill?: No Do you have trouble taking care of your child, family member or friend?: No Do you have trouble with day-to-day activities such as bathing, preparing meals, shopping, managing finances, etc.?: No Are you currently unemployed and looking for a job?: No Are you interested in more education?: Yes Please select the resources that you would like help with: None Currently or been in a relationship where the following occur: No concerns reported THRIVE Score: 1 JJ-7 AMB Questionnaire JJ-7 Date JJ - 7 assessed: 01/12/25 Source: Developed by Drs. Jered Hannah, Melodie Shine, Fahad Willett and colleagues, with an educational corin from [employer]. Review of Systems Const All systems reviewed & are unremarkable except as noted in HPI and below Reports no additional complaints Eyes Reports no additional complaints ENT Reports no additional complaints Card Reports no additional complaints Resp Reports no additional complaints GI Reports no additional complaints Reports no additional complaints Physical exam (Primary Care) Vital Signs: Last Vital Signs Pulse 73 02/05/25 11:54 BP 108/70 02/05/25 11:54 Pulse Ox 97 02/05/25 11:54 Oxygen Delivery Method Room Air 02/05/25 11:54 BMI result Body Mass Index 24.1 Tobacco/Smoking Status: Tobacco use Status Tobacco use date assessed 01/12/25 02/05/25 11:54 Patient Tobacco Use Status Never used Tobacco 02/05/25 11:54 e-Cigarette/Vaping Use Never Used 02/05/25 11:54 Thrive Assessment: Date of Thrive Assessment Date Thrive assessed 01/05/25 02/05/25 11:54 Currently or been in a relationship where the following occur: No concerns reported Const General: no acute distress HENMT Head: Yes normal to inspection Ears: hearing grossly normal bilaterally Face and sinus: Yes normal facial exam Throat: Yes posterior oropharynx normal Eyes General: appearance normal, both eyes and all related structures Neck Neck: Yes no lymphadenopathy and Yes supple Resp Effort & Inspection: normal respiratory effort Auscultation: clear to auscultation bilaterally Cardio Rhythm: regular rhythm Heart sounds: S1 normal heart sound present and S2 normal heart sound present GI Inspection: Yes normal to inspection Palpation (GI): Soft to palpation Percussion: Yes normal to percussion Auscultation: normal bowel sounds Coding Level of Care Code Est Pt Prev Care 40-64y(50355) Diagnoses Anxiety and depression F41.9; F32.A Hyperlipidemia E78.5 Annual physical exam Z00.00 TMJ (temporomandibular joint disorder) M26.609 Assessment & Plan Assessment & Plan (1) Anxiety and depression: Comment: Agoraphobia, f/u psychology Code(s): F41.9 - Anxiety disorder, unspecified; F32.A - Depression, unspecified Category: Medical Plan: Follow-up with psychiatry (2) Hyperlipidemia: Code(s): E78.5 - Hyperlipidemia, unspecified Category: Medical Plan: Continue pravastatin (3) Annual physical exam: Code(s): Z00.00 - Encounter for general adult medical examination without abnormal findings Category: Medical Plan: Well-balanced diet regular physical activity discussed with the patient she is up-to-date with the Pap smear mammogram by shopping investigator (4) TMJ (temporomandibular joint disorder): Comment: Patient is looking for TMJ specialist in [place] Code(s): M26.609 - Unspecified temporomandibular joint disorder, unspecified side Category: Medical Plan: Controlled on methocarbamol prn patient is looking for TMJ specialist covered by her insurance Orders: Orders UA w Microscopic 1 Year E78.5 - Hyperlipidemia, unspecified, Z00.00 - Encounter for general adult medical examination without abnormal findings Comprehensive [place]. Panel Fast 1 Year E78.5 - Hyperlipidemia, unspecified, Z00.00 - Encounter for general adult medical examination without abnormal findings Complete Blood Count Auto Diff 1 Year E78.5 - Hyperlipidemia, unspecified, Z00.00 - Encounter for general adult medical examination without abnormal findings Lipid Panel 1 Year E78.5 - Hyperlipidemia, unspecified, Z00.00 - Encounter for general adult medical examination without abnormal findings TSH reflex Free T4 1 Year E78.5 - Hyperlipidemia, unspecified, Z00.00 - Encounter for general adult medical examination without abnormal findings Medications: Refilled methocarbamol 500 mg PO BEDTIME 90 tabs 3RF
--- OUTSIDE RECORDS SUMMARY | 2025-02-05 12:39 | XMS_ITS | Clinical Summary ---
Author Organization [facility] Address [address] [place] [id number] Phone Care Team Providers Care Applications Architect Name Role Phone Micheline Gomez MD Primary Care Provider [phone] Allergies No known active allergies Medications levonorgestrel (MIRENA) 20 mcg/24 hours (5 yrs) 52 mg intrauterine device 1 Device by Intrauterine route Once every 5 years. Active Active Problems No known active problems Social History Tobacco Use Types Packs/Day Years Used Date Smoking Tobacco: Former Smokeless Tobacco: Never Alcohol Use Standard Drinks/Week Comments Not Currently 0 (1 standard drink = 0.6 oz pur e alcohol) Education Answer Date Recorded Are you interested in more education? Not on doron e 11/10/2022 Are you concerned about learning? Not on file 11/10/2022 No 11/10/2022 No 11/10/2022 Digital Access Answer Date Recorded No 12/08/2022 No 12/08/2022 No 12/08/2022 Reliable internet access at home? Not on file 12/08/2022 Device with a working camera? Not on file Comments Unknown Sex and Gender Information Value Date Recorded Sex Assigned at Not on file Legal Sex Female 9:21 PM EDT Gender Identity Not on file Sexual Orientation Not on file Last Filed Vital Signs Vital Sign Reading Time Taken Comments Blood Pressure - - Pulse - - Temperature - - Respiratory Rate - - Oxygen Saturation - - Inhaled Oxygen Concentration - - Weight 79.4 kg (175 lb) 07/10/2019 10:27 AM EST Height 166.4 cm (5' 5.5 ) 07/10/2019 10:27 AM ES T Body Mass Index 28.68 07/10/2019 10:27 AM EST Plan of Treatment Health Maintenance Due Date Last Done Comments DEPRESSION SCREENING 1993 SMOKING Hx and SMOKELESS TOBACCO SCREENING 1994 HEPATITIS C SCREENING 1999 HIV ONE-TIME SCREENING (18-6 5 YEARS) 1999 PAP SMEAR 2002 MAMMOGRAM 2021 COVID-19 VACCINE (3 - 2023-2 5 season) 2024 01/23/2021, 01/02/2021 Adult Td,Tdap Booster 05/07/2027 05/07/2017 HEPATITIS A VACCINES Aged Out No long er eligible based on patient's age to complete this topic HIB VACCINES Aged Out No longer eligi ble based on patient's age to complete this topic MENINGOCOCCAL VACCINES (ACWY) Aged Out No longer eligible based on patient's age to complete this topic MENINGOCOCCAL VACCINES (B) Aged Out N o longer eligible based on patient's age to complete this topic PNEUMOCOCCAL VACCINES (0-49 years) Aged Out No longer eligible b ased on patient's age to complete this topic Medical Devices Not on file Insurance MEDICARE PART A & B [facility] MEDICARE PART A & B [place] [address] MED[address] PART A [address] [place] [address] [phone] MEDICARE PART A & [place] [facility] [place] [id number] MEDICARE PART A & [place] [facility] [place] [id number] MEDICARE PART A & B [facility] [address] MED[place]ARE PART A & B [facility] Care Teams Applications Architect Relationship Specialty Start Date End Date Micheline Gomez MD [address] [place] [id number] PCP - General Internal Medicine 07/10/19 Additional Source Comments The information contained in this document represents components of the legal health record. It is not the complete legal health record.[facility]
== END 2025-02-05 12:43 | disposition home or self-care (01) ==
LOC: HO.HMCC 11:54
PROVIDERS: PCP Internal Medicine; Visit Provider Internal Medicine
DX: Z00.00 Encounter for general adult medical examination without abnormal findings (principal); F41.9 Anxiety disorder, unspecified; F32.A Depression, unspecified; E78.5 Hyperlipidemia, unspecified; M26.609 Unspecified temporomandibular joint disorder, unspecified side

== ENCOUNTER → 2025-02-05 11:53 | Outpatient (BNVA) | payer MEDICARE, MEDICAID, SELFPAY | PROVIDERS: PCP Internal Medicine; Visit Provider Internal Medicine | DX: Z00.00 Encounter for general adult medical examination without abnormal findings (principal); F41.9 Anxiety disorder, unspecified; F32.A Depression, unspecified; E78.5 Hyperlipidemia, unspecified; M26.609 Unspecified temporomandibular joint disorder, unspecified side | CPT/HCPCS: 99396 ==

== ENCOUNTER → 2025-04-06 10:01 | Outpatient (REF) | payer MEDICARE, MEDICAID, SELFPAY ==
--- OUTSIDE RECORDS SUMMARY | 2025-04-06 12:16 | XMS_ITS | Clinical Summary ---
Author Organization [facility] Address [address] [place] [address] Phone Care Team Providers Care Plastic Worker Name Role Phone Micheline Gomez MD Primary Care Provider [phone] Allergies No known active allergies Medications levonorgestrel [...] YEARS) 1999 PAP SMEAR 2002 MAMMOGRAM 2021 INFLUENZA VACCINE (#1) 2025 , 05/07/2017 COVID-19 VACCINE (3 - 2024-2 6 season) 2025 01/23/2021, 01/02/2021 Adult Td,Tdap Booster 05/07/2027 05/07/2017 [...] file Insurance MEDICARE PART A & B Member Subscriber Plan / Payer (Ef fective 2009-Present) Name:Eleanor Salazar Member ID:[id number] Relation to Subscriber:Self Name:Eleanor Salazar Subscriber ID:[id number] Payer ID:[id number] Group ID:Not on file Type:Medicare Address: [facility] [employer] [facility] [address] [facility] [address] [facility] MEDICARE PART A [place] [address] MEDICARE PART A [place] [id number] MEDICARE PART A & B [facility] [place] [id number] MEDICARE PART A & [place] [facility] [place] [address] MEDICARE PART A & B [facility] [place] [address] [place] [address] MEDICARE PART A & [facility] B [facility] MEDICARE PART A & B [facility] Care Teams Plastic Worker Relationship Specialty Start Date End Date Micheline Gomez MD [address] [id number] PCP - General Internal Medicine 07/10/19 Additional Source Comments The information contained in this document represents components of the legal health record. It is not the complete legal health record.[facility]
== END ==
LOC: HO.SL 10:01
PROVIDERS: PCP Internal Medicine; Visit Provider Internal Medicine
DX: G47.30 Sleep apnea, unspecified (principal); R06.83 Snoring
CPT/HCPCS: 95806

== ENCOUNTER → 2025-04-06 10:15 | Outpatient (BNV) | payer MEDICARE, MEDICAID, SELFPAY | PROVIDERS: PCP Internal Medicine; Visit Provider Internal Medicine | DX: R06.83 Snoring (principal) | CPT/HCPCS: 95806 ==